=== PATIENT | female | born 1960 | race Caucasian/White ===

== ENCOUNTER → 2021-03-22 | Outpatient (CLI) | payer OTHER ==
[~2021-03-22] MED LIST: IBUP600 PO; LISI20 PO; METFORMIN HCL500 MG PO
[2021-03-22 18:38] LABS: Protein, Urine Random 17.9 mg/dL (0.0-11.9)
== END | disposition home or self-care (01) ==
LOC: PLD 14:41 → LAB SHORT 14:41 → LAB FUT 05-06 07:20
PROVIDERS: Internal Medicine
DX: N18.30 Chronic kidney disease, stage 3 unspecified (principal)
CPT/HCPCS: 82570; 84156

== ENCOUNTER 2022-01-05 12:58 | Day surgery (SDC) | payer OTHER ==
[~2022-01-05] VITALS: Ht 175.3 cm; Wt 129.8 kg
[2022-01-05] MEDS ORDERED: ASPI81CH (13:41)
[2022-01-05] MEDS ORDERED: METHI10 (13:42)
[2022-01-05] MEDS ORDERED: VITAMIN D310 MC4 (13:43)
[2022-01-05] MEDS ORDERED: ZOCOR20 MG (13:43)
[2022-01-05] MEDS ORDERED: MIRALAX17 GM (13:44)
--- NOTE | 2022-01-05 15:44 | NUR ---
01/05/22 1544 EDELMIRA CARRASCO 5MM ASCENDING COLON POLYP REMOVED BUT UNABLE TO RETRIEVE.
== END 2022-01-05 15:40 | disposition home or self-care (01) ==
LOC: ORSCSDS 12:58
PROVIDERS: Internal Medicine Gastroenterology
PROC: 0DBK8ZX Excision of Ascending Colon, Via Natural or Artificial Opening Endoscopic, Diagnostic (ICD-10-PCS; principal; 2022-01-05 14:30)
DX: Z12.11 Encounter for screening for malignant neoplasm of colon (principal); K57.30 Diverticulosis of large intestine without perforation or abscess without bleeding; Z86.010 Personal history of colon polyps; D37.4 Neoplasm of uncertain behavior of colon; E11.9 Type 2 diabetes mellitus without complications; I10 Essential (primary) hypertension; E66.01 Morbid (severe) obesity due to excess calories; Z68.41 Body mass index [BMI] 40.0-44.9, adult; Z79.84 Long term (current) use of oral hypoglycemic drugs; Z79.899 Other long term (current) drug therapy
CPT/HCPCS: 82947; J2704; J7120

== ENCOUNTER → 2022-07-04 | Outpatient (CLI) | payer OTHER ==
[~2022-07-04] MED LIST changes: +ASPI81CH; +METHI10; +MIRALAX17 GM; +VITAMIN D310 MC4; +ZOCOR20 MG
[2022-07-04 18:49] LABS: Protein, Urine Random <5.0 mg/dL (0.0-11.9); Protein/Creat Ratio, Ur Random Unable to Calculate
== END | disposition home or self-care (01) ==
LOC: LAB SHORT 09:40 → LAB 09:40
PROVIDERS: Internal Medicine Nephrology
DX: N18.31 Chronic kidney disease, stage 3a (principal)
CPT/HCPCS: 82570; 84156

== ENCOUNTER 2023-08-21 13:24 | Inpatient (IN) | payer OTHER ==
[~2023-08-21] VITALS: Ht 167.6 cm; Wt 131.0 kg
[2023-08-21] VITALS (15 sets, daily range): BP systolic 131–177; BP diastolic 56–118
[~2023-08-21 13:24] MED LIST changes: -METHI10; +METHI10 PO; -ZOCOR20 MG; +ZOCOR20 MG PO
[2023-08-21 14:11] LABS: Base Excess Venous -0.8 mmol/L; Bicarbonate Venous 23.1 mmol/L (24.0-30.0); PCO2 Venous 41.1 mmHg (38-42); pH Blood Venous 7.38 (7.34-7.37)
[2023-08-21 14:16] LABS: Hematocrit 40.6 % (33.0-51.0); Hemoglobin 13.4 g/dL (11.5-16.0); Mean Corpuscular HGB 29.7 pg (26.0-34.0); Mean Corpuscular Volume 90 fL (80-100); Platelet Count 126 K/mm3 (150-400); RDW Coefficient Variation 14.5 % (11.7-14.2); RDW Standard Deviation 47.8 fL (35.1-46.3); Red Blood Cell Count 4.51 M/mm3 (3.80-5.20)
[2023-08-21 14:24] LABS: Albumin, Blood 2.9 g/dL (3.4-5.0); Albumin/Globulin Ratio 0.6 (0.8-1.8); Bilirubin, Total 0.7 mg/dL (0.1-1.0); Bun/Creatinine Ratio 18.6 (12.0-20.0); Calcium, Blood 8.6 mg/dL (8.5-10.1); Creatinine, Blood 1.61 mg/dL (0.40-1.00); Total Protein, Blood 7.9 g/dL (6.4-8.2)
[2023-08-21 14:53] LABS: BAND PERCENT MAN 8 % (0-8); BASOPHILS PERCENT MAN 0 % (0-2); EOSINOPHILS PERCENT MAN 0 % (0-6); LYMPHOCYTES ABSOLUTE MAN 0.38 K/mm3 (0.84-5.20); LYMPHOCYTES PERCENT MAN 3 % (21-46); MONOCYTES ABSOLUTE MAN 0.77 K/mm3 (0.16-1.47); MONOCYTES PERCENT MAN 6 % (4-13); NEUTROPHILS ABSOLUTE MAN 11.73 K/mm3 (1.96-9.15); SEG NEUTROPHILS PERCENT MAN 83 % (41-73); TOTAL CELLS COUNTED 100
[2023-08-21 16:02] LABS: Source, Urine Clean Catch
[2023-08-21 16:07] LABS: Appearance, Urine Hazy (Clear); Bilirubin, Urine Neg (Neg); Blood, Urine 5+ (Neg); Color, Urine Yellow (P-Yellow); Glucose Qualitative, Urine Neg (Neg); Ketones, Urine 1+ (Neg); Leukocyte Esterase, Urine Neg (Neg); Nitrite, Urine Neg (Neg); Protein, Urine 3+ (Neg); Urobilinogen, Urine NORM (Normal)
[2023-08-21] MEDS ORDERED: Prinivil10 MG PO (16:28)
[2023-08-21 16:30] LABS: Amorphous Mod (0-Heavy); Bacteria Few /hpf; Squamous Epithelial Cells Few /hpf (Few); White Blood Cells, Urine 0-2 /hpf (0-5)
[2023-08-21 19:35] LABS: PO2 Arterial 203 mmHg (80-100); pH Blood Arterial 7.47 (7.35-7.45)
--- NOTE | 2023-08-21 19:57 | NUR ---
UPDATE ASSUMED CARE OF PATIENT AT 1900, PATIENT VERY LETHARGIC, WILL OPEN EYES TO HER NAME BUT QUCKLY FALLS BACK ASLEEP. PATIENT TACHYPNEIC WITH RR 45. TACHYCARDIC WITH HR 130s. UPON ASSESSMENT PATIENT WAS ON 3L NC BUT THIS RN WENT INTO ROOM, PATIENT BEGAN TO DESAT INTO HIGH 70s. NONREBREATHER PLACED AT 15L, PATIENT ABLE TO RECOVER TO LOW 90s. RT NOTIFIED. RESIDENT GAITAN AT BEDSIDE GIVING VERBAL ORDERS FOR ABG AND CPAP/BIPAP PER RT RECCOMENDATION. NS BOLUS INFUSING PER EMAR. RT ILEANA ABG. DECISION TO PLACE PATIENT ON BIPAP RR HAS NOT IMPROVED. RESIDENT UMAÑA CALLED AND COMING TO BEDSIDE. TEMP SIGALA CATH PLACED FOR CRITICAL I/Os PER VERBAL ORDER. RESIDENT UMAÑA ALSO PLACING TRANSFER ORDERS TO ICU. THIS RN AND RT TO BRING PATIENT TO IMAGING FOR HEAD CT AND TO TRANSFER TO ICU .
--- NOTE | 2023-08-21 20:20 | NUR ---
UPDATE THIS RN, AVIONICS ELECTRONICS TECHNICIAN AND RT AT BEDSIDE ATTEMPTING TO BRING PATIENT TO IMAGING FOR HEAD CT. PATIENT CONTINUES TO BE TACHYPNEIC ON BIPAP WITH RR 45-50. PATIENT SPO2 DROPPED TO 80s. 100% O2 APPLIED THROUGH BIPAP. THIS RN CALLED ICU AVIONICS ELECTRONICS TECHNICIAN WITH UPDATE. ICU CHARGE AT BESIDE. PATIENT TOO UNATABLE TO TRANSFER TO IMAGING AT THIS TIME. PATIENT TRANSFERRED TO ICU 09. SON AT BEDSIDE WAS UPDATED AND IN THE ICU WAITING ROOM. BEDSIDE SHIFT REPORT GIVEN TO PASSENGER BOOKING CLERK.
[2023-08-21 21:16] LABS: Source, Urine Foley catheter
[2023-08-21 21:26] LABS: Appearance, Urine Cloudy (Clear); Bilirubin, Urine Neg (Neg); Blood, Urine 5+ (Neg); Color, Urine Yellow (P-Yellow); Glucose Qualitative, Urine 1+ (Neg); Ketones, Urine 2+ (Neg); Leukocyte Esterase, Urine Neg (Neg); Nitrite, Urine Neg (Neg); Protein, Urine 3+ (Neg); Urobilinogen, Urine NORM (Normal)
[2023-08-21 21:43] LABS: Red Blood Cells, Urine 0-2 /hpf (0-2); Squamous Epithelial Cells Few /hpf (Few); White Blood Cells, Urine 0-2 /hpf (0-5)
[2023-08-21 21:44] LABS: Amorphous Mod (0-Heavy); Bacteria Few /hpf; Granular Casts 0-2 /lpf (0)
--- NOTE | 2023-08-21 23:00 | NUR ---
PT ARRIVED FROM PCU AT 2019 ACCOMPANIED BY C D AREA SUPERVISOR, RT AND ICU DENTISTRY TEACHER. PT NODS APPROPRIATELY, FOLLOWS COMMANDS, IS NOT ANSWERING QUESTIONS VERBALLY, MUMBLES AT TIMES BUT UNABLE TO MAKE OUT SPEECH WITH BIPAP ON. PER SON AT BEDSIDE, PT IS A/O X4 AT BASELINE. ST 120-150. BP ELEVATED 130-150'S. ON BIPAP 14/6 FIO2 50%. O2 SAT 100%. LUNGS COARSE THROUGHOUT, RESP 40-50. NO C/O NAUSEA, NO VOMITING. BS HYPOACTIVE, ABDOMEN OBESE. TEMP PROBE SIGALA PLACED IN PCU. CONNECTED TO BEDSIDE MONITOR AND CORE TEMP READING 105.5. CONTINUED TO RISE TO 105.7. ICE PACKS IMMEDIATELY PLACED AND DR. UMAÑA NOTIFIED. APAP SD ORDERED AND GIVEN. TEMP DECREASED TO 104.7. SON AT BEDSIDE. ADMISSION COMPLETED, PT LIVES WITH 3 SONS, 1 DAUGHTER IN LAW AND 2 GRANDCHILDREN. SON SANDRO AT BEDSIDE STATES THEY "ALL TAKE CARE OF EACHOTHER". SKIN WITH SEVERAL AREAS OF CONCERN. RED OPEN AREAS IN ALL SKIN FOLDS WITH FOUL ODOR. CLEANSED AND POWDER PLACED. LEFT FOOT RED AND EDEMATOUS. PODIATRY CONSULT PENDING. KLEBER IBANEZ AT BEDSIDE, ALL QUESTIONS ANSWERED AND UPDATES PROVIDED APPROPRIATE. POC ONGOING.
[2023-08-22] VITALS (40 sets, daily range): BP systolic 101–142; BP diastolic 41–86
--- NOTE | 2023-08-22 00:15 | NUR ---
DR. UMAÑA TO BEDSIDE CONTACTED BY THIS RN, TEMP HAS INCREASED TO 105.1 AND CONTINUES TO CLIMB. APAP NOT DUE FOR 1.5 HOURS, ICE PACKS IN PLACE. COOLING BLANKET ADDED UNDER PT AND RECTAL TEMP PROBE PLACED AND CONNECTED TO COOLING BLANKET. MD TO BEDSIDE, FLAGYL ADDED TO ANTIBIOTIC REGIMEN. RESP PANEL COLLECTED EARLIER HAS NOT YET RESULTED. SON CONTINUES TO BE AT BEDSIDE, UPDATED ON CURRENT CONDITION, ALL QUESTIONS ANSWERED. POC ONGOING.
[2023-08-22 01:26] LABS: Adenovirus Not Detected (NOT DETECT); Bordetella pertussis Not Detected (NOT DETECT); Chlamydophila pneumoniae Not Detected (NOT DETECT); Coronavirus 229E Not Detected (NOT DETECT); Coronavirus HKU1 Not Detected (NOT DETECT); Coronavirus NL63 Not Detected (NOT DETECT); Coronavirus OC43 Not Detected (NOT DETECT); Human Metapneumovirus Not Detected (NOT DETECT); Human Rhinovirus/Enterovirus Not Detected (NOT DETECT); Influenza A/2009-H1 Not Detected (NOT DETECT); Influenza A/H1 Not Detected (NOT DETECT); Influenza A/H3 Not Detected (NOT DETECT); Influenza B Not Detected (NOT DETECT); Mycoplasma pneumoniae Not Detected (NOT DETECT); Parainfluenza Virus 1 Not Detected (NOT DETECT); Parainfluenza Virus 2 Not Detected (NOT DETECT); Parainfluenza Virus 3 Not Detected (NOT DETECT); Parainfluenza Virus 4 Not Detected (NOT DETECT); Respiratory Syncytial Virus Not Detected (NOT DETECT); SARS-Cov-2 (COVID-19), BioFire Detected (NOT DETECT)
[2023-08-22 04:03] LABS: Magnesium, Blood 1.8 mg/dL (1.6-2.4)
[2023-08-22 04:05] LABS: Bun/Creatinine Ratio 18.3 (12.0-20.0); Calcium, Blood 8.1 mg/dL (8.5-10.1); Creatinine, Blood 1.69 mg/dL (0.40-1.00); Potassium, Blood 3.7 mmol/L (3.5-5.5); Thyroid Stimulating Hormone 0.647 uIU/mL (0.360-4.800)
--- NOTE | 2023-08-22 05:53 | NUR ---
SHIFT SUMMARY PT MORE ALERT, ANSWERING QUESTIONS WITH YES/NO. V/S IMPROVED. HR 80'S, BP 106/59 MAP 74, TEMP DECREASED TO 98.7 AFTER SECOND DOSE OF APAP CT AND COOLING BLANKET. SR WITH MORE FREQUENT PVC'S AND PAC'S. BIPAP 14/6 FIO2 35%, SPO2 98%, RESP RATE 20. LUNGS SLIGHTLY LESS COARSE THAN PRIOR, WEAK COUGH AT TIMES, NO SPUTUM. REMAINS NPO, POC BLOOD GLUCOSE EVERY 6 HOURS WITH LOW SLIDING SCALE COVERAGE. 2 UNITS INSULIN SQ GIVEN FOR BLOOD GLUCOSE 220. NO NAUSEA OR VOMITING. SIGALA IN PLACE DRAINING JOSE ANTONIO URINE WITH SEDIMENT. 550 ML OUT THIS SHIFT. PICTURES TAKEN OF SKIN/AREAS OF CONCERN, PLACED IN CHART. PIV X2,. BOTH WITHDRAW BLOOD AND FLUSH WELL. SON LEFT AT APPROX 0200, WILL BE BACK THIS AM. DAUGHTER IN LAW UNA CALLED THIS AM FOR UPDATE, ALL QUESTIONS ANSWERED, UPDATE PROVIDED INCLUDING COVID STATUS. NOTIFIED DR. UMAÑA OF POSITIVE BLOOD CULTURES. NO NEW ORDERS RECIEVED. POC ONGOING.
[2023-08-22 05:58] LABS: Hematocrit 34.7 % (33.0-51.0); Hemoglobin 11.4 g/dL (11.5-16.0); Mean Corpuscular HGB 29.9 pg (26.0-34.0); Mean Corpuscular HGB Conc 32.9 g/dL (31.5-36.5); Mean Corpuscular Volume 91 fL (80-100); Mean Platelet Volume 12.3 fL (9.1-12.4); Platelet Count 88 K/mm3 (150-400); RDW Coefficient Variation 14.9 % (11.7-14.2); Red Blood Cell Count 3.81 M/mm3 (3.80-5.20); White Blood Cell Count 12.05 K/mm3 (4.00-11.30)
[2023-08-22 06:20] LABS: BAND PERCENT MAN 8 % (0-8); BASOPHILS PERCENT MAN 0 % (0-2); EOSINOPHILS PERCENT MAN 0 % (0-6); LYMPHOCYTES ABSOLUTE MAN 0.12 K/mm3 (0.84-5.20); LYMPHOCYTES PERCENT MAN 1 % (21-46); MONOCYTES ABSOLUTE MAN 0.12 K/mm3 (0.16-1.47); MONOCYTES PERCENT MAN 1 % (4-13); SEG NEUTROPHILS PERCENT MAN 90 % (41-73); TOTAL CELLS COUNTED 100
--- NOTE | 2023-08-22 08:00 | NUR ---
INITIAL ASSESSMENT PATIENT ALERT AND ORIENTED X 4, SLOW TO RESPOND. SPEECH MUMBLED. PATIENT CALM, COOPERATIVE, FLAT AFFECT NOTED. PATIENT WEAK BUT ABLE TO MOVE ALL EXTREMITIES. PATIENT HAS COOLING BLANKET ON. PATIENT AFEBRILE AT THIS TIME. LLE PAINFUL TO TOUCH BUT OTHERWISE NO COMPLAINTS OF PAIN. LUNGS CLEAR THROUGHOUT. PATIENT CHANGED FROM BIPAP 14/6, 35% FIO2 TO 1 L NC AND REMAINS SATTING 90% AND GREATER. PATIENT IN SR, HR 80S TO 90S. SBP LOW 100S TO 1-TEENS. HYPOACTIVE BS NOTED. PATIENT NPO. DATE OF LAST BM UNKNOWN. TEMP PROBE SIGALA IN PLACE DRAINING YELLOW COLORED URINE WITH SEDIMENT NOTED. PANNUS/ PETER FOLDS REDDENED. L LOWER LEG AND FOOT RED AND INFLAMED. SCABS TO L 2ND TOE. NS INFUSING AT 150 MLS/ HOUR. BED LOW, CALL LIGHT IN REACH. CARE CONTINUES.
[2023-08-22 08:56] LABS: Hematocrit 35.7 % (33.0-51.0); Mean Corpuscular HGB 30.4 pg (26.0-34.0); Mean Corpuscular HGB Conc 33.6 g/dL (31.5-36.5); Mean Corpuscular Volume 90 fL (80-100); Mean Platelet Volume 12.5 fL (9.1-12.4); Platelet Count 101 K/mm3 (150-400); RDW Coefficient Variation 14.8 % (11.7-14.2); RDW Standard Deviation 49.5 fL (35.1-46.3); Red Blood Cell Count 3.95 M/mm3 (3.80-5.20); White Blood Cell Count 10.76 K/mm3 (4.00-11.30)
[2023-08-22 09:19] LABS: Percent Saturation 6.9 % (15.0-50.0)
[2023-08-22 09:20] LABS: BAND PERCENT MAN 13 % (0-8); BASOPHILS PERCENT MAN 0 % (0-2); EOSINOPHILS PERCENT MAN 0 % (0-6); LYMPHOCYTES ABSOLUTE MAN 0.43 K/mm3 (0.84-5.20); LYMPHOCYTES PERCENT MAN 4 % (21-46); METAMYELOCYTE PERCENT MAN 1 % (0-0); MONOCYTES PERCENT MAN 1 % (4-13); NEUTROPHILS ABSOLUTE MAN 10.11 K/mm3 (1.96-9.15); SEG NEUTROPHILS PERCENT MAN 81 % (41-73); TOTAL CELLS COUNTED 100
[2023-08-22 09:48] LABS: International Normalized Ratio 1.02; Prothrombin Time Results 10.7 Sec (9.7-11.5)
--- NOTE | 2023-08-22 12:30 | NUR ---
PATIENT AFEBRILE. HR IN THE 90S. SBP 1-TEENS. BLOOD SUGAR 269; COVERAGE ADMINISTERED. NO OTHER ACUTE CHANGES TO NOTE ON AT THIS TIME. CARE CONTINUES.
--- NOTE | 2023-08-22 16:30 | NUR ---
PATIENT AFEBRILE. HR IN THE 80S. SBP IN THE 1-TEENS. BLOOD SUGAR 217; COVERAGE ADMINISTERED. SPEECH THERAPY STARTED DIET ON PATIENT. NO OTHER ACUTE CHANGES TO NOTE ON AT THIS TIME. CALL LIGHT IN REACH. SON AT SIDE. CARE CONTINUES.
--- NOTE | 2023-08-22 18:32 | NUR ---
SHIFT SUMMARY PATIENT REMAINED ALERT AND ORIENTED X 4, AFEBRILE. COOLING BLANKETS REMOVED THIS AM. PATIENT SLOW TO RESPOND AND SPEECH MUMBLED. PATIENT WEAK BUT ABLE TO MOVE ALL EXTREMITIES. LLE PAINFUL WHEN TOUCHED, OTHERWISE NO COMPLAINTS OF PAIN THIS SHIFT. PATIENT TAKEN OFF BIPAP THIS AM AND REMAINED SATTING 90% AND GREATER ON 1 L NC. PATIENT REMAINED IN SR, HR RANGED FROM 70S TO LOW 100S. SBP LOW 100S TO 120S. PATIENT HAD SMEAR THIS SHIFT. SPEECH THERAPY PERFORMED SWALLOW EVAL ON PATIENT AND STARTED ON PUREE DIET; PATIENT TOLERATING WELL UP TO THIS POINT. 500 MLS OF YELLOW COLORED URINE WITH SEDIMENT NOTED FROM SIGALA. NO CHANGES TO SKIN NOTED. DR. HIGGINS IN TO ASSESS FOOT AND TOE; STATED HE PLANS TO TAKE PATIENT TO SURGERY TOMORROW FOR INFECTED TOE. MICONAZORB ORDERED AND STARTED FOR REDDENED, FOUL-SMELLING PANNUS AND PETER SKIN FOLDS. NS REMAINS INFUSING AT 150 MLS/ HOUR. ELISABETH DC'D THIS SHIFT. OT AND PT WORKED WITH PATIENT THIS SHIFT. ECHO PERFORMED THIS SHIFT. PATIENT UP TO CHAIR WITH LIFT THIS SHIFT. PATIENT RECEIVED COMPLETE BED BATH. BLOOD SUGARS 269 AND 217 THIS SHIFT. SON HERE ALL SHIFT SITTING IN ROOM WITH PATIENT. PATIENT HAS NO COMPLAINTS AT THIS TIME. CALL LIGHT IN REACH. REPORT WILL BE GIVEN TO ASSUMING SPIN TANK TENDER NURSE SHORTLY.
--- NOTE | 2023-08-22 20:35 | NUR ---
ASSUMED CARE PT IS A&O X2; WHEN ASKED WHERE SHE WAS PT STATED "[facility]" AND WHEN REMINDING PT SHE WAS IN HOSPITAL, PT STATED "OH YEA, SPEEDY, I KNEW THAT.". PT IS COOPERATIVE W/ CARE AND PLEASANT. TOLERATING BIPAP WELL. SPO2 >92% ON BIPAP; MAP >65; NSR/ST 90-100'S. PT DENIES CP OR NAUSEA. PT DID NOT TOLERATE SHORT BREAK FROM BIPAP FOR MEDS (HF NC 15L) AND DESATTED DOWN INTO THE 80'S; QUICKLY RECOVERED AFTER BIPAP WAS PUT BACK ON.
--- NOTE | 2023-08-22 20:47 | NUR ---
ASSUMED CARE PT IS A&O X4; SLOW/SLURRED SPEECH; COMMUNICATES APPROPRIATELY. SPO2 >92% ON RA; MAP >65; NSR. PT WAS MOVED FROM CHAIR TO BED AT START OF SHIFT. SON AT BEDSIDE. PERRLA; EQUAL PACK PRESS OPERATOR STRENGTH BILATERALLY. LEFT LEG SHOWS REDNESS SLIGHTLY OUTSIDE OF DEMARCATED LINE (2-3CM)(REDRAWN W/ SHARPIE AROUND NEW REDNESS). PT DENIES CP, SOB, OR NAUSEA. RESTING QUIETLY WATCHING TV AT THIS TIME.
--- NOTE | 2023-08-22 23:48 | NUR ---
UPDATE PT IS RESTING QUIETLY. NO LONGER COMPLAINING OF PAIN, BUT APPEARS TO BE FAVORING HER LEFT ARM. IS ABLE TO MOVE ARM (EXCLUDING LIFTING LEFT ARM PAST SHOULDERS). DIRECTOR OF EMERGENCY NURSING STRENGTH EQUAL AND PERRLA.
[2023-08-23] VITALS (11 sets, daily range): BP systolic 80–152; BP diastolic 58–81
[2023-08-23 03:33] LABS: Hematocrit 34.7 % (33.0-51.0); Hemoglobin 11.2 g/dL (11.5-16.0); Mean Corpuscular HGB 29.5 pg (26.0-34.0); Mean Corpuscular HGB Conc 32.3 g/dL (31.5-36.5); Mean Corpuscular Volume 91 fL (80-100); Mean Platelet Volume 12.3 fL (9.1-12.4); Platelet Count 87 K/mm3 (150-400); RDW Coefficient Variation 15.1 % (11.7-14.2); RDW Standard Deviation 50.7 fL (35.1-46.3); White Blood Cell Count 10.82 K/mm3 (4.00-11.30)
[2023-08-23 04:07] LABS: Albumin, Blood 2.1 g/dL (3.4-5.0); Albumin/Globulin Ratio 0.5 (0.8-1.8); Bilirubin, Total 0.3 mg/dL (0.1-1.0); Bun/Creatinine Ratio 25.3 (12.0-20.0); Calcium, Blood 7.6 mg/dL (8.5-10.1); Creatinine, Blood 1.74 mg/dL (0.40-1.00); Globulin, Blood 3.9 g/dL (2.2-4.0); Potassium, Blood 3.7 mmol/L (3.5-5.5)
[2023-08-23 04:12] LABS: BASOPHILS PERCENT MAN 0 % (0-2); EOSINOPHILS PERCENT MAN 0 % (0-6); LYMPHOCYTES % ATYPICAL MANUAL 3 % (0-0); LYMPHOCYTES ABSOLUTE MAN 0.86 K/mm3 (0.84-5.20); LYMPHOCYTES PERCENT MAN 5 % (21-46); MONOCYTES ABSOLUTE MAN 0.32 K/mm3 (0.16-1.47); MONOCYTES PERCENT MAN 3 % (4-13); MYELOCYTE PERCENT MAN 1 % (0-0); NEUTROPHILS ABSOLUTE MAN 9.52 K/mm3 (1.96-9.15); SEG NEUTROPHILS PERCENT MAN 88 % (41-73); TOTAL CELLS COUNTED 100
--- NOTE | 2023-08-23 05:25 | NUR ---
SHIFT SUMMARY PT HAS RESTED QUIETLY T/O NIGHT. PT STATED THAT SHE GOT A LITTLE SLEEP, BUT IS DOING "OKAY". PT IS CURRENTLY RESTING QUIETLY AND HAS NO NEW COMPLAINTS. WHEN ASKED IF PT NEEDS ANYTHING THIS AM PT SAYS NO AND SMILES. SIGALA CATHETER PATENT AND DRAINING TO GRAVITY. VSS
--- NOTE | 2023-08-23 07:18 | NUR ---
TRANSFER PT TRANSFERR TO PCU 10 AT 0700 W/ BELONGINGS AND MEDS. REPORT GIVEN TO UCHE POPE
--- NOTE | 2023-08-23 07:48 | NUR ---
Pt transferred into PCU 10 at approx 0710. CEiling lift used to transfer from ICU bed to bed in the room. Pt is alert, conversant, and appears to be calm and without any distress. She is wearing a mask. Report received from BISI Anton.
--- NOTE | 2023-08-23 08:09 | NUR ---
Pt speaks in a childlike fashion, states that she is at [facility], and knows the month and year, and reason for her hospitalization. She is lying in bed, appears to be in no distress. Denies pain, dyspnea.
--- NOTE | 2023-08-23 12:48 | NUR ---
Abdominal ultrasound completed in the pt's room. PT's son Juan José is at bedside, sleeping in the recliner chair.
--- NOTE | 2023-08-23 13:11 | NUR ---
PT A&OX4, ABLE TO ANSWER QUESTIONS APPROPRIATELY, SPEECH IS SLOW AND MUMBLED. CALM AND COOPERATIVE WITH CARE. PT IS MISSING A LOT OF HER TEETH, JUST A FEW IN THE FRONT ON THE BOTTOM. PT ON RA, O2 SATURATION ABOVE 90%, PT DENIES SOB. HR SR 60'S-70'S, PT ON TELE, PT DENIES CHEST PAIN/PRESSURE, SBP 130'S-150'S. PT HAS SIGALA IN PLACE, PATENT & YELLOW URINE DRAINING WITH GRAVITY. LLE RED AND SWOLLEN, L 2ND TOE HAS DIABETUC ULCER AND AMPUTATION IS OF TOE IS SCHEDULED FOR TODAY. PT HAS IV L AC FLUSHED AND SALINE LOCKED, & IV R FOREARM FLUSHED AND SALINE LOCKED. PT IS NPO DUE TO SCHEDULED SURGERY. PT DENIES PAIN OF ANY KIND. PT RESTING IN BED WITH VISITOR IN HER ROOM.
--- NOTE | 2023-08-23 13:59 | NUR ---
PT TAKEN FOR CT SCANS.
--- NOTE | 2023-08-23 14:23 | NUR ---
PT RETURNED TO PCU [address] SCANS
--- NOTE | 2023-08-23 17:01 | NUR ---
Pt back to room just before 1630. Awake, alert and at mentation level as before the surgery. Post op dressing noted intact, clean and dry. Elevated on 2 pillows. Asked how she feels, pt replies, "relieved". Son Juan José at bedside at this time. Vital signs are stable. She is sitting up, eating and drinking. IV NS infusing at 75 cc/hour via right forearm IV. Vital signs set to run on sequence for post op monitoring.
--- NOTE | 2023-08-23 18:17 | NUR ---
PT TRANSFERRED TO 352 WITH ALL OF HER BELONGINGS, PT STABLE AT TIME OF TRANSFER. REPORT GIVEN TO ROOM 352 NURSE.
--- NOTE | 2023-08-23 18:29 | NUR ---
PATIENT TRANSFERRED FROM PCU 10 TO ROOM 362. PATIENT ORIENTED TO ROOM AND USE OF CALL LIGHT. SON AT BEDSIDE. DRESSING TO L FOOT REMAINS C/D/I. PATIENT WILL NEED POST OP SHOUE FOR AMBULATION. ACHS BLOOD SUGARS. ASPIRATION PRECAUTIONS IN PLACE. SR ON TELE THROUGHOUT THE DAY BETWEEN 60-80 BPM PER REPORT. REPORT RECEIVED FROM BISI SALAZAR. PATIENT DENIES ANY NEEDS CONCERNS AT THIS TIME. CALL LIGHT WITHIN REACH AND FALL PRECAUTIONS IN PLACE.
[2023-08-23 21:50] LABS: Vancomycin, Trough 20.2 ug/mL (5.0-10.0)
[2023-08-24 02:49] VITALS: BP 151/81
[2023-08-24 05:29] LABS: BASOPHILS ABSOLUTE AUTO 0.03 K/mm3 (0.00-0.23); BASOPHILS PERCENT AUTO 0 % (0-2); EOSINOPHILS PERCENT AUTO 0 % (0-6); Hematocrit 34.2 % (33.0-51.0); Hemoglobin 11.4 g/dL (11.5-16.0); IMMATURE GRAN ABSOLUTE AUTO 0.12 K/mm3 (0.00-0.10); IMMATURE GRAN PERCENT AUTO 1 % (0-1); LYMPHOCYTES ABSOLUTE AUTO 1.82 K/mm3 (0.84-5.20); LYMPHOCYTES PERCENT AUTO 13 % (21-46); MONOCYTES ABSOLUTE AUTO 0.88 K/mm3 (0.16-1.47); MONOCYTES PERCENT AUTO 6 % (4-13); Mean Corpuscular HGB 29.8 pg (26.0-34.0); Mean Corpuscular HGB Conc 33.3 g/dL (31.5-36.5); Mean Corpuscular Volume 90 fL (80-100); NEUTROPHILS ABSOLUTE AUTO 11.62 K/mm3 (1.96-9.15); NEUTROPHILS PERCENT AUTO 80 % (41-73); Platelet Count 112 K/mm3 (150-400); RDW Coefficient Variation 15.3 % (11.7-14.2); RDW Standard Deviation 50.4 fL (35.1-46.3); Red Blood Cell Count 3.82 M/mm3 (3.80-5.20); White Blood Cell Count 14.47 K/mm3 (4.00-11.30)
[2023-08-24 05:47] LABS: Mean Platelet Volume 13.3 fL (9.1-12.4)
[2023-08-24 06:04] LABS: Albumin, Blood 2.2 g/dL (3.4-5.0); Albumin/Globulin Ratio 0.6 (0.8-1.8); Bilirubin, Total 0.6 mg/dL (0.1-1.0); Bun/Creatinine Ratio 32.7 (12.0-20.0); Calcium, Blood 7.8 mg/dL (8.5-10.1); Creatinine, Blood 1.65 mg/dL (0.40-1.00); Globulin, Blood 3.7 g/dL (2.2-4.0); Potassium, Blood 4.1 mmol/L (3.5-5.5); Total Protein, Blood 5.9 g/dL (6.4-8.2)
--- NOTE | 2023-08-24 06:36 | NUR ---
Shift Summary Pt states no pain on her RLE, although she does have reduced sensation due to neuropathy per pt. Good capilary refill on R toes. Guaze and TAWANDA bandage dressing are C/D/I. 1 incontinent BM this shift. Ann in place draining to gravity and patent. NS running at 75. Pt on nectar thick liquids for aspiration precautions, meds given crushed in apple sauce. Q2 turns. Pt slept for a small portion of the night.
[2023-08-24 07:17] VITALS: BP 153/77
[2023-08-24 15:38] VITALS: BP 144/75
--- NOTE | 2023-08-24 18:26 | NUR ---
SHIFT SUMMARY: PT A&O X2-3. PT PLEASANT AND COOPERATIVE WITH CARE. PT REMAINS TO HAVE DIFFICULT TIME PLACING WORDS/SENTENCES TOGETHER. FOLDS CLEANED, DRIED, AND APPLIED POWDER. SIGALA NOT NEEDED AT THIS POINT DUE TO NO ORDER FOR STRICT I&O. WILL BE OUT PRIOR TO END OF SHIFT. DRESSING ON L. FOOT C/D/I. NO C/O PAIN THIS SHIFT. NS RUNNING @50/HR. ASPIRATION PRECAUTION IN PLACE. CALL LIGHT IN REACH. BED IN LOWEST POSITION. WILL CONTINUE TO MONITOR.
[2023-08-24 20:52] VITALS: BP 181/100
[2023-08-24 23:14] VITALS: BP 172/94
[2023-08-25 02:00] VITALS: BP 160/88
[2023-08-25 04:10] VITALS: BP 157/78
[2023-08-25 05:40] LABS: Hematocrit 36.4 % (33.0-51.0); Hemoglobin 11.7 g/dL (11.5-16.0); Mean Corpuscular HGB 29.3 pg (26.0-34.0); Mean Corpuscular HGB Conc 32.1 g/dL (31.5-36.5); Mean Corpuscular Volume 91 fL (80-100); Platelet Count 136 K/mm3 (150-400); RDW Coefficient Variation 15.6 % (11.7-14.2); RDW Standard Deviation 51.8 fL (35.1-46.3); White Blood Cell Count 15.39 K/mm3 (4.00-11.30)
[2023-08-25 06:11] LABS: BASOPHILS PERCENT MAN 0 % (0-2); EOSINOPHILS PERCENT MAN 0 % (0-6); LYMPHOCYTES % ATYPICAL MANUAL 3 % (0-0); LYMPHOCYTES ABSOLUTE MAN 2.15 K/mm3 (0.84-5.20); LYMPHOCYTES PERCENT MAN 11 % (21-46); MONOCYTES ABSOLUTE MAN 0.92 K/mm3 (0.16-1.47); MONOCYTES PERCENT MAN 6 % (4-13); NEUTROPHILS ABSOLUTE MAN 12.31 K/mm3 (1.96-9.15); SEG NEUTROPHILS PERCENT MAN 80 % (41-73); TOTAL CELLS COUNTED 100
[2023-08-25 06:22] LABS: Albumin, Blood 2.2 g/dL (3.4-5.0); Albumin/Globulin Ratio 0.5 (0.8-1.8); Bilirubin, Total 0.5 mg/dL (0.1-1.0); Bun/Creatinine Ratio 36.1 (12.0-20.0); Calcium, Blood 8.1 mg/dL (8.5-10.1); Creatinine, Blood 1.58 mg/dL (0.40-1.00); Globulin, Blood 4.3 g/dL (2.2-4.0); Potassium, Blood 4.2 mmol/L (3.5-5.5); Total Protein, Blood 6.5 g/dL (6.4-8.2)
--- NOTE | 2023-08-25 06:49 | NUR ---
Shift Summary Pt had Ann taken out yesterday, purewick in place tonight. Low urine output, urine is a dark yellow. Pt was very hypertensive early in the night 181/100, called hospitalist who ordered a one time dose of 10mg Lisinopril which is pt's home HTN medication. Pt still hypertensive 157/78 this AM. No c/o pain or nausea. Pt still having difficulty forming words but she understands most of what staff is saying and is able to convey her ideas with effort. Pt was awake for most of the night.
[2023-08-25 07:38] VITALS: BP 156/75
--- NOTE | 2023-08-25 10:41 | NUR ---
BLADDER SCAN SHOWS VOL>700ML. 200ML ON NOC SHIFT. PER DR. HOWELL, PLACE INDWELLING SIGALA.
[2023-08-25 12:31] LABS: Source, Urine Foley catheter
[2023-08-25 12:45] LABS: Appearance, Urine Clear (Clear); Bilirubin, Urine Neg (Neg); Blood, Urine 5+ (Neg); Color, Urine Yellow (P-Yellow); Glucose Qualitative, Urine 3+ (Neg); Ketones, Urine Neg (Neg); Leukocyte Esterase, Urine Neg (Neg); Nitrite, Urine Neg (Neg); Protein, Urine 1+ (Neg); Specific Gravity, Urine 1.015 (1.003-1.022); Urobilinogen, Urine NORM (Normal)
[2023-08-25 12:57] LABS: Bacteria Rare /hpf; Red Blood Cells, Urine 25-50 /hpf (0-2); Squamous Epithelial Cells Few /hpf (Few); White Blood Cells, Urine 0-2 /hpf (0-5)
[2023-08-25 13:12] LABS: HEPARIN INDUCED PLATELET AB 0.111 OD (0.000-0.400)
[2023-08-25 16:30] VITALS: BP 166/96
--- NOTE | 2023-08-25 18:30 | NUR ---
SHIFT SUMMARY PT IS ALERT AND ORIENTED. DIFFICULT TO UNDERSTAND AND SLOW TO ANSWER. BEDREST. REDNESS IS EXTENDING PAST THE MARKED AREA ON LLE. SIGALA IN PLACE DUE TO ACUTE RETENTION. TREATED CBG PER EMAR. PT IS CALM AND COOPERATIVE. NO ACUTE CHANGES THIS SHIFT. FAMILY IS AT BEDSIDE. PT IS ABLE TO MAKE NEEDS KNOWN. BED IS IN THE LOWEST POSITION WITH CALL LIGHT IN REACH
[2023-08-25 19:17] VITALS: BP 163/90
[2023-08-25 22:37] LABS: Vancomycin, Trough 23.3 ug/mL (5.0-10.0)
[2023-08-26 04:21] VITALS: BP 149/81
--- NOTE | 2023-08-26 04:21 | NUR ---
SHIFT SUMMARY; NO ACUTE CHANGES OVERNIGHT. THE PT IS AXO X4, VERY SLOW TO RESPOND AND SPEECH IS VERY MUMBLED. THE PT IS A LIFT PT, PT IS ABLE TO BARE WT TOLERATED W/ A WALKING BOOT ON THE L FOOT. HOWEVER, PT DID NOT WORK W/ PHYSICAL THERAPY ON 08/25/23. PT HAS SOME CHRONIC BACK PAIN BUT DENIED THE NEED FOR ANY PRN PAIN MEDICATION LAST NIGHT. THE PT HAS A SIGALA IN PLACE, IT IS PATENT AND DRAINING TO GRAVITY. THE PT HAS BEEN SLEEPING IN BED FOR THE DURATION OF THE SHIFT. THE PTS O2 SATS REMAIN >92% ON RA. THE PT ALSO DENIES ANY SOB, CHEST PAIN/PRESSURE, N/V OR PAIN T/O THE NIGHT. CURRENTLY THE PT IS SLEEPING IN BED WITH THE BED IN THE LOWEST POSITION AND THE CALL LIGHT AT BEDSIDE. FIRE EDUCATION PROVIDED AND FIRE SAFETY ROUNDS COMPLETED.
[2023-08-26 05:48] LABS: Hematocrit 35.5 % (33.0-51.0); Hemoglobin 11.5 g/dL (11.5-16.0); Mean Corpuscular HGB 29.4 pg (26.0-34.0); Mean Corpuscular HGB Conc 32.4 g/dL (31.5-36.5); Mean Corpuscular Volume 91 fL (80-100); Mean Platelet Volume 12.9 fL (9.1-12.4); Platelet Count 180 K/mm3 (150-400); RDW Coefficient Variation 15.6 % (11.7-14.2); Red Blood Cell Count 3.91 M/mm3 (3.80-5.20); White Blood Cell Count 16.25 K/mm3 (4.00-11.30)
[2023-08-26 06:14] LABS: Albumin, Blood 2.3 g/dL (3.4-5.0); Albumin/Globulin Ratio 0.6 (0.8-1.8); Bilirubin, Total 0.6 mg/dL (0.1-1.0); Bun/Creatinine Ratio 46.2 (12.0-20.0); Calcium, Blood 8.3 mg/dL (8.5-10.1); Creatinine, Blood 1.3 mg/dL (0.40-1.00); Globulin, Blood 3.7 g/dL (2.2-4.0); Potassium, Blood 4.2 mmol/L (3.5-5.5)
[2023-08-26 06:17] LABS: BAND PERCENT MAN 4 % (0-8); BASOPHILS PERCENT MAN 0 % (0-2); EOSINOPHILS PERCENT MAN 0 % (0-6); LYMPHOCYTES ABSOLUTE MAN 2.11 K/mm3 (0.84-5.20); LYMPHOCYTES PERCENT MAN 13 % (21-46); MONOCYTES ABSOLUTE MAN 1.13 K/mm3 (0.16-1.47); MONOCYTES PERCENT MAN 7 % (4-13); MYELOCYTE ABSOLUTE MAN 0.32 K/mm3 (0.00-0.00); MYELOCYTE PERCENT MAN 2 % (0-0); NEUTROPHILS ABSOLUTE MAN 12.51 K/mm3 (1.96-9.15); PLASMA CELL ABSOLUTE MAN 0.16 K/mm3 (0.00-0.00); PLASMA CELLS PERCENT MAN 1 % (0-0); SEG NEUTROPHILS PERCENT MAN 73 % (41-73); TOTAL CELLS COUNTED 100
[2023-08-26 07:19] VITALS: BP 152/77
[2023-08-26 15:09] VITALS: BP 134/87
--- NOTE | 2023-08-26 19:34 | NUR ---
SHIFT SUMMARY NO ACUTE CHANGES THIS SHIFT, PT SAT AT THE SIDE OF BED FOR A FEW HOURS TODAY. DENIES PAIN AND SOB. PT WAS TEARFUL TODAY BUT DID NOT WANT TO TALK ABOUT WHAT WAS BOTHERING HER. SHE SEEMED TO BRIGHTEN UP WHEN HER SON ARRIVED. R/A. ABLE TO MAKE NEEDS KNOWN. BED IS IN THE LOWEST POSTION WITH CALL LIGHT IN REACH
[2023-08-26 20:10] VITALS: BP 151/75
[2023-08-27 04:52] LABS: BASOPHILS ABSOLUTE AUTO 0.02 K/mm3 (0.00-0.23); BASOPHILS PERCENT AUTO 0 % (0-2); EOSINOPHILS ABSOLUTE AUTO 0.01 K/mm3 (0.00-0.68); EOSINOPHILS PERCENT AUTO 0 % (0-6); Hematocrit 35.5 % (33.0-51.0); Hemoglobin 11.3 g/dL (11.5-16.0); IMMATURE GRAN ABSOLUTE AUTO 0.29 K/mm3 (0.00-0.10); IMMATURE GRAN PERCENT AUTO 2 % (0-1); LYMPHOCYTES ABSOLUTE AUTO 3.28 K/mm3 (0.84-5.20); LYMPHOCYTES PERCENT AUTO 24 % (21-46); MONOCYTES ABSOLUTE AUTO 0.94 K/mm3 (0.16-1.47); MONOCYTES PERCENT AUTO 7 % (4-13); Mean Corpuscular HGB 29.2 pg (26.0-34.0); Mean Corpuscular HGB Conc 31.8 g/dL (31.5-36.5); Mean Corpuscular Volume 92 fL (80-100); Mean Platelet Volume 12.5 fL (9.1-12.4); NEUTROPHILS ABSOLUTE AUTO 9.07 K/mm3 (1.96-9.15); NEUTROPHILS PERCENT AUTO 67 % (41-73); Platelet Count 217 K/mm3 (150-400); RDW Coefficient Variation 15.6 % (11.7-14.2); RDW Standard Deviation 52.9 fL (35.1-46.3); Red Blood Cell Count 3.87 M/mm3 (3.80-5.20); White Blood Cell Count 13.61 K/mm3 (4.00-11.30)
[2023-08-27 06:21] LABS: Alanine Aminotransfer (ALT/SGP 99 U/L (12-78); Albumin, Blood 2.4 g/dL (3.4-5.0); Albumin/Globulin Ratio 0.7 (0.8-1.8); Alk Phos 56 U/L (50-136); Anion Gap 4 mmol/L (6-16); Aspartate Aminotrans (AST/SGOT 93 U/L (12-37); Bilirubin, Total 0.9 mg/dL (0.1-1.0); Blood Urea Nitrogen 55 mg/dL (8-24); Bun/Creatinine Ratio 42.6 (12.0-20.0); CO2, Blood 26 mmol/L (21-32); Calcium, Blood 8.3 mg/dL (8.5-10.1); Chloride, Blood 116 mmol/L (98-108); Creatinine, Blood 1.29 mg/dL (0.40-1.00); Globulin, Blood 3.4 g/dL (2.2-4.0); Glomerular Filtration Rate 47 (60-); Glucose, Blood 198 mg/dL (70-99); Potassium, Blood 4.4 mmol/L (3.5-5.5); Sodium, Blood 146 mmol/L (136-145); Total Protein, Blood 5.8 g/dL (6.4-8.2)
[2023-08-27 06:23] LABS: Vancomycin, Trough 21.9 ug/mL (5.0-10.0)
[2023-08-27 07:41] VITALS: BP 145/76
[2023-08-27 20:48] VITALS: BP 134/79
[2023-08-27 23:16] LABS: Vancomycin, Random 14.6 ug/mL
[2023-08-28 05:28] VITALS: BP 120/69
[2023-08-28 06:20] LABS: BASOPHILS ABSOLUTE AUTO 0.02 K/mm3 (0.00-0.23); BASOPHILS PERCENT AUTO 0 % (0-2); EOSINOPHILS ABSOLUTE AUTO 0.02 K/mm3 (0.00-0.68); EOSINOPHILS PERCENT AUTO 0 % (0-6); Hematocrit 35.4 % (33.0-51.0); Hemoglobin 11.2 g/dL (11.5-16.0); IMMATURE GRAN ABSOLUTE AUTO 0.28 K/mm3 (0.00-0.10); IMMATURE GRAN PERCENT AUTO 3 % (0-1); LYMPHOCYTES ABSOLUTE AUTO 2.93 K/mm3 (0.84-5.20); LYMPHOCYTES PERCENT AUTO 29 % (21-46); MONOCYTES ABSOLUTE AUTO 0.87 K/mm3 (0.16-1.47); MONOCYTES PERCENT AUTO 9 % (4-13); Mean Corpuscular HGB 28.9 pg (26.0-34.0); Mean Corpuscular HGB Conc 31.6 g/dL (31.5-36.5); Mean Corpuscular Volume 92 fL (80-100); Mean Platelet Volume 12.3 fL (9.1-12.4); NEUTROPHILS ABSOLUTE AUTO 5.97 K/mm3 (1.96-9.15); NEUTROPHILS PERCENT AUTO 59 % (41-73); Platelet Count 229 K/mm3 (150-400); RDW Coefficient Variation 15.5 % (11.7-14.2); RDW Standard Deviation 51.3 fL (35.1-46.3); Red Blood Cell Count 3.87 M/mm3 (3.80-5.20); White Blood Cell Count 10.09 K/mm3 (4.00-11.30)
--- NOTE | 2023-08-28 06:20 | NUR ---
SHIFT SUMMARY, PT SITTING UP IN BED DURING REPORT, SON AT BEDSIDE- PT TOOK SCHEDULED MEDICATIONS WHOLE IN THICKENED WATER, PT REFUSED TO TAKE CRUSHED MEDICATIONS- PT REQUESTED TYLENOL AT HS MEDS FOR HEADACHE- PT DENIED HEADACHE WHEN REASSESSED, PT LEFT LEG REDNESS DECREASED COMPARED TO THE OUTLINED LEG- FLUIDS AND ANTIBIOTICES INFUSED T/O NIGHT WITHOUT PROBLEMS, PT REPOSITIONED SELF AT TIMES T/O NIGHT- CATH CARE DONE - PT TOLERATED WELL, BED LOW POSITION, CALL LIGHT WITHIN REACH
[2023-08-28 06:43] LABS: Albumin, Blood 2.5 g/dL (3.4-5.0); Albumin/Globulin Ratio 0.7 (0.8-1.8); Bilirubin, Total 0.7 mg/dL (0.1-1.0); Bun/Creatinine Ratio 36.7 (12.0-20.0); Calcium, Blood 8.1 mg/dL (8.5-10.1); Creatinine, Blood 1.28 mg/dL (0.40-1.00); Globulin, Blood 3.4 g/dL (2.2-4.0); Potassium, Blood 4.1 mmol/L (3.5-5.5); Total Protein, Blood 5.9 g/dL (6.4-8.2)
[2023-08-28 08:14] VITALS: BP 150/77
[2023-08-28 12:03] LABS: Albumin, Blood 2.5 g/dL (3.4-5.0); Albumin/Globulin Ratio 0.8 (0.8-1.8); Bilirubin, Total 0.7 mg/dL (0.1-1.0); Bun/Creatinine Ratio 36.6 (12.0-20.0); Creatinine, Blood 1.23 mg/dL (0.40-1.00); Globulin, Blood 3.3 g/dL (2.2-4.0); Potassium, Blood 4.1 mmol/L (3.5-5.5); Total Protein, Blood 5.8 g/dL (6.4-8.2)
[2023-08-28 17:37] VITALS: BP 149/76
--- NOTE | 2023-08-28 17:57 | NUR ---
SHIFT SUMMARY PT WORKED WITH PHYSICAL AND OCCUPATIONAL THERAPY TODAY. UP TO CHAIR WITH LIFT FOR DINNER TODAY. PT SEEMS TO PERK UP WHEN SITTING UPRIGHT. POOR APPETITE TODAY. DRINKING HER NECTER THICK JUICES WELL, HOWEVER. NO OTHER ACUTE CHANGES IN ASSESSMETN AT THIS TIME. VS REVIEWED. PT UP VISITED BY HER SON CURRENTLY. CALL LIGHT IN REACH.
[2023-08-28 19:42] VITALS: BP 138/68
[2023-08-28 22:34] LABS: Vancomycin, Random 14.9 ug/mL
--- NOTE | 2023-08-29 04:59 | NUR ---
SHIFT SUMMARY PT SITTING UP IN CHAIR DURING BEDSIDE REPORT FROM ANGELLA MATHEWS, KLEBER IBANEZ IN ROOM- PT RETURNED TO BED VIA JAQUELINE LIFT, PT TOLERATED WELL- IV INFUSING WITHOUT PROBLEMS, SIGALA DRAINING YELLOW URINE- PT TOOK HS MEDS WITHOUT C/O NAUSEA, PT TOOK WHOLE IN NECTAR THICK WATER, SIGALA CARE DONE, PT REPOSITIONED T/O NIGHT, VANCO TROUGH DONE, IV VANCO GIVEN PER ORDER, BED LOW POSITION, CALL LIGHT WITHIN REACH, PT ON ENHANCED PRECAUTIONS
[2023-08-29 05:01] VITALS: BP 142/59
[2023-08-29 06:19] LABS: BASOPHILS ABSOLUTE AUTO 0.01 K/mm3 (0.00-0.23); BASOPHILS PERCENT AUTO 0 % (0-2); EOSINOPHILS ABSOLUTE AUTO 0.01 K/mm3 (0.00-0.68); EOSINOPHILS PERCENT AUTO 0 % (0-6); Hematocrit 33.4 % (33.0-51.0); Hemoglobin 10.7 g/dL (11.5-16.0); IMMATURE GRAN ABSOLUTE AUTO 0.27 K/mm3 (0.00-0.10); IMMATURE GRAN PERCENT AUTO 3 % (0-1); LYMPHOCYTES ABSOLUTE AUTO 2.85 K/mm3 (0.84-5.20); LYMPHOCYTES PERCENT AUTO 33 % (21-46); MONOCYTES ABSOLUTE AUTO 0.68 K/mm3 (0.16-1.47); MONOCYTES PERCENT AUTO 8 % (4-13); Mean Corpuscular HGB 29.6 pg (26.0-34.0); Mean Corpuscular Volume 92 fL (80-100); NEUTROPHILS ABSOLUTE AUTO 4.86 K/mm3 (1.96-9.15); NEUTROPHILS PERCENT AUTO 56 % (41-73); Platelet Count 226 K/mm3 (150-400); RDW Coefficient Variation 15.2 % (11.7-14.2); RDW Standard Deviation 51.2 fL (35.1-46.3); Red Blood Cell Count 3.62 M/mm3 (3.80-5.20); White Blood Cell Count 8.68 K/mm3 (4.00-11.30)
[2023-08-29 07:26] VITALS: BP 152/61
[2023-08-29 11:35] LABS: Albumin, Blood 2.4 g/dL (3.4-5.0); Albumin/Globulin Ratio 0.7 (0.8-1.8); Bilirubin, Total 0.7 mg/dL (0.1-1.0); Bun/Creatinine Ratio 30.1 (12.0-20.0); Calcium, Blood 7.8 mg/dL (8.5-10.1); Creatinine, Blood 1.23 mg/dL (0.40-1.00); Globulin, Blood 3.3 g/dL (2.2-4.0); Potassium, Blood 4.7 mmol/L (3.5-5.5); Total Protein, Blood 5.7 g/dL (6.4-8.2)
--- NOTE | 2023-08-29 18:02 | NUR ---
SHIFT SUMMARY DRESSING CHANGED TO L 2ND TOE. WOUND CARE COMPLETED ON ABD TEAR IN SKIN FOLD. PT DENIED PAIN T/O SHIFT. WORKED WITH PT/OT/ST TODAY. UP TO CHAIR FOR LUNCH. BEDBATH COMPLETED TODAY WITH CATHETER CARE. SIGALA PATENT & DRAINING. SON AT BEDSIDE AT THIS TIME. TELE & IV FLUIDS DCED TODAY PER MD ORDERS. NO OTHER ACUTE CHANGES IN ASSESSMENT AT THIS TIME. VS REVIEWED. CALL LIGHT IN REACH. AWAITING PLACEMENT TO SNF FOR FURTHER REHAB.
[2023-08-29 20:43] VITALS: BP 153/79
[2023-08-30 02:09] VITALS: BP 131/79
[2023-08-30 05:37] LABS: BASOPHILS ABSOLUTE AUTO 0.02 K/mm3 (0.00-0.23); BASOPHILS PERCENT AUTO 0 % (0-2); EOSINOPHILS PERCENT AUTO 0 % (0-6); Hemoglobin 10.8 g/dL (11.5-16.0); IMMATURE GRAN ABSOLUTE AUTO 0.19 K/mm3 (0.00-0.10); IMMATURE GRAN PERCENT AUTO 3 % (0-1); LYMPHOCYTES ABSOLUTE AUTO 2.56 K/mm3 (0.84-5.20); LYMPHOCYTES PERCENT AUTO 35 % (21-46); MONOCYTES PERCENT AUTO 8 % (4-13); Mean Corpuscular HGB 29.8 pg (26.0-34.0); Mean Corpuscular HGB Conc 32.7 g/dL (31.5-36.5); Mean Corpuscular Volume 91 fL (80-100); Mean Platelet Volume 11.9 fL (9.1-12.4); NEUTROPHILS ABSOLUTE AUTO 3.89 K/mm3 (1.96-9.15); NEUTROPHILS PERCENT AUTO 54 % (41-73); Platelet Count 216 K/mm3 (150-400); RDW Coefficient Variation 15.1 % (11.7-14.2); RDW Standard Deviation 49.7 fL (35.1-46.3); Red Blood Cell Count 3.63 M/mm3 (3.80-5.20); White Blood Cell Count 7.26 K/mm3 (4.00-11.30)
--- NOTE | 2023-08-30 06:04 | NUR ---
SHIFT SUMMARY PT SITTING UP IN BED DURING BEDSIDE REPORT - KLEBER IBANEZ AT BEDSIDE- SIGALA CATH IN PLACE DRAINING CLEAR YELLOW URINE- PT TURNED T/O NIGHT, PT ABLE TO ASSIST WITH REPOSITIONING- PT SLEPT T/O NIGHT - BED LOW POSITION, CALL LIGHT WITHIN REACH
[2023-08-30 07:28] VITALS: BP 143/59
[2023-08-30 11:58] LABS: Albumin, Blood 2.7 g/dL (3.4-5.0); Albumin/Globulin Ratio 0.8 (0.8-1.8); Bilirubin, Total 0.8 mg/dL (0.1-1.0); Bun/Creatinine Ratio 24.4 (12.0-20.0); Calcium, Blood 8.3 mg/dL (8.5-10.1); Creatinine, Blood 1.23 mg/dL (0.40-1.00); Globulin, Blood 3.4 g/dL (2.2-4.0); Potassium, Blood 4.5 mmol/L (3.5-5.5); Total Protein, Blood 6.1 g/dL (6.4-8.2)
[2023-08-30 16:22] VITALS: BP 131/56
--- NOTE | 2023-08-30 17:44 | NUR ---
DAYSHIFT SUMMARY Patient alert, quiet, delayed responses. No acute changes to patient status. No s/sx of COVID, afebrile, sats stable. IV ABX administred. Awaiting discharge planning.
[2023-08-30 20:08] VITALS: BP 138/63
[2023-08-31 01:06] LABS: BASOPHILS ABSOLUTE AUTO 0.02 K/mm3 (0.00-0.23); BASOPHILS PERCENT AUTO 0 % (0-2); EOSINOPHILS PERCENT AUTO 0 % (0-6); Hematocrit 34.6 % (33.0-51.0); Hemoglobin 11.1 g/dL (11.5-16.0); IMMATURE GRAN ABSOLUTE AUTO 0.11 K/mm3 (0.00-0.10); IMMATURE GRAN PERCENT AUTO 2 % (0-1); LYMPHOCYTES ABSOLUTE AUTO 2.36 K/mm3 (0.84-5.20); LYMPHOCYTES PERCENT AUTO 35 % (21-46); MONOCYTES ABSOLUTE AUTO 0.66 K/mm3 (0.16-1.47); MONOCYTES PERCENT AUTO 10 % (4-13); Mean Corpuscular HGB 29.4 pg (26.0-34.0); Mean Corpuscular HGB Conc 32.1 g/dL (31.5-36.5); Mean Corpuscular Volume 92 fL (80-100); Mean Platelet Volume 11.7 fL (9.1-12.4); NEUTROPHILS ABSOLUTE AUTO 3.53 K/mm3 (1.96-9.15); NEUTROPHILS PERCENT AUTO 53 % (41-73); Platelet Count 223 K/mm3 (150-400); RDW Coefficient Variation 14.9 % (11.7-14.2); RDW Standard Deviation 49.7 fL (35.1-46.3); Red Blood Cell Count 3.77 M/mm3 (3.80-5.20); White Blood Cell Count 6.68 K/mm3 (4.00-11.30)
[2023-08-31 01:24] LABS: Vancomycin, Trough 14.9 ug/mL (5.0-10.0)
--- NOTE | 2023-08-31 04:31 | NUR ---
SHIFT SUMMARY A/OX4 , ROOM AIR. FLAT, SOFT SPOKEN AND SLOW TO RESPOND. SAT UP FOR MED ADMINISTRATION PILLS WHOLE IN APPLESAUCE DRANK ABOUT 3/4 OF TISHA PACKET. REPOSITIONING Q2. PRN TYLENOL GIVEN X1 FOR PAIN TO BACK. IV ANTIBIOTIVS ADMINSITERED PER PHARMACY AND EMAR
[2023-08-31 04:38] VITALS: BP 124/66
[2023-08-31 07:52] VITALS: BP 121/56
[2023-08-31 11:59] LABS: Albumin, Blood 2.8 g/dL (3.4-5.0); Albumin/Globulin Ratio 0.8 (0.8-1.8); Bilirubin, Total 0.8 mg/dL (0.1-1.0); Bun/Creatinine Ratio 29.4 (12.0-20.0); Calcium, Blood 8.6 mg/dL (8.5-10.1); Creatinine, Blood 1.19 mg/dL (0.40-1.00); Globulin, Blood 3.5 g/dL (2.2-4.0); Potassium, Blood 4.3 mmol/L (3.5-5.5); Total Protein, Blood 6.3 g/dL (6.4-8.2)
[2023-08-31] MEDS ORDERED: ACET500 PO (12:35)
[2023-08-31] MEDS ORDERED: ALBU2.5V5 INH (12:38)
[2023-08-31] MEDS ORDERED: ASPI81CH PO (12:38)
[2023-08-31] MEDS ORDERED: MIRALAX17 GM PO (12:39)
[2023-08-31] MEDS ORDERED: XARELTO10 M1 PO (12:40)
[2023-08-31] MEDS ORDERED: CEPH500 PO (12:40)
[2023-08-31 15:31] VITALS: BP 144/72
--- NOTE | 2023-08-31 16:37 | NUR ---
PT IS NOT LEAVING, DR. PANTOJA NOTIFIED. ORDERS RECEIVED.
--- NOTE | 2023-08-31 19:24 | NUR ---
SHIFT SUMMARY: PT A/O X 4, LIFT PT. PLEASANT AND COOPERATIVE WITH CARE. PT WAS SUPPOSED TO BE DISCHARGED TODAY BUT WAS CANCELED BECAUSE INSURANCE DID NOT AUTHORIZE. PT SON UPDATED WITH PLAN. PT VERBALIZED UNDERSTANDING AND WAS OKAY WITH STAYING IN THE HOSPITAL. PT DID NOT HAVE ANY COMPLAINTS OF PAIN THROUGHOUT THE DAY. SIGALA IN AND WILL BE REMOVED WHEN SON LEAVES.
[2023-08-31 19:54] VITALS: BP 126/62
[2023-09-01 04:47] VITALS: BP 113/56
--- NOTE | 2023-09-01 04:52 | NUR ---
SHIFT SUMMARY VSS SON AT BEDSIDE BOTH HAVE FLAT AFFECTS, PT ABLE TO LET ME KNOW SHE HAD BM. PT CHANGED AND SIGALA WAS REMOVED. PT MEDICATED AND WENT TO SLEEP, SON WENT HOME. PT NOT RECEIVING AND FLUIDS NOR HAS SHE DRANK ANYTHING SINCE SIGALA REMOVED SO NOT TOO CONCERNED WITH RETENTION.PT HAD LARGE LOOSE STOOL AND POSSIBLY URINATED, WILL CONT TO MONITOR
--- NOTE | 2023-09-01 05:57 | NUR ---
PT WAS ABLE TO USE BEDPAN TO URINATE 350 ML, WAS MORE BUT WAS INC.
[2023-09-01 06:21] LABS: BASOPHILS ABSOLUTE AUTO 0.02 K/mm3 (0.00-0.23); BASOPHILS PERCENT AUTO 0 % (0-2); EOSINOPHILS PERCENT AUTO 0 % (0-6); Hematocrit 35.6 % (33.0-51.0); Hemoglobin 11.5 g/dL (11.5-16.0); IMMATURE GRAN ABSOLUTE AUTO 0.04 K/mm3 (0.00-0.10); IMMATURE GRAN PERCENT AUTO 1 % (0-1); LYMPHOCYTES ABSOLUTE AUTO 1.87 K/mm3 (0.84-5.20); LYMPHOCYTES PERCENT AUTO 36 % (21-46); MONOCYTES ABSOLUTE AUTO 0.54 K/mm3 (0.16-1.47); MONOCYTES PERCENT AUTO 11 % (4-13); Mean Corpuscular HGB 29.6 pg (26.0-34.0); Mean Corpuscular HGB Conc 32.3 g/dL (31.5-36.5); Mean Corpuscular Volume 92 fL (80-100); Mean Platelet Volume 11.8 fL (9.1-12.4); NEUTROPHILS ABSOLUTE AUTO 2.67 K/mm3 (1.96-9.15); NEUTROPHILS PERCENT AUTO 52 % (41-73); Platelet Count 200 K/mm3 (150-400); RDW Coefficient Variation 15.2 % (11.7-14.2); RDW Standard Deviation 50.5 fL (35.1-46.3); Red Blood Cell Count 3.88 M/mm3 (3.80-5.20); White Blood Cell Count 5.14 K/mm3 (4.00-11.30)
[2023-09-01 07:39] VITALS: BP 137/67
--- NOTE | 2023-09-01 16:19 | NUR ---
DC TO MAURICIO REPORT CALLED TO RECEIVING MAURICIO RN. PT CLEANED AFTER HAVING INCONTINENT BM THEN LIFTED WITH LIFT IN ROOM TO TRANSPORT W/C. ALL PERSONAL BELONGINGS TAKEN BY PT'S SON. DC PKT GIVEN TO TRANSPORT PERSONNEL.
== END 2023-09-01 16:03 | disposition home or self-care (01) | DRG 853 ==
LOC: ER 13:24 → PCU 17:34 → MEDS 17:34 → ICUE 17:34 → PCU 18:50 → ICUE 20:05 → PCU 08-23 07:00 → MEDS 08-23 18:16
PROVIDERS: Family Medicine; Hospitalist; Podiatrist; Student in an Organized Health Care Education/Training Program; ADMIT Internal Medicine
PROC: 0Y6S0Z0 Detachment at Left 2nd Toe, Complete, Open Approach (ICD-10-PCS; principal; 2023-08-23 14:00)
PROC: 5A09357 Assistance with Respiratory Ventilation, Less than 24 Consecutive Hours, Continuous Positive Airway Pressure (ICD-10-PCS; 2023-08-25)
PROC: 0T9B70Z Drainage of Bladder with Drainage Device, Via Natural or Artificial Opening (ICD-10-PCS; 2023-08-25)
PROC: 4A03XR1 Measurement of Arterial Saturation, Peripheral, External Approach (ICD-10-PCS; 2023-08-25)
PROC: 3E03329 Introduction of Other Anti-infective into Peripheral Vein, Percutaneous Approach (ICD-10-PCS; 2023-08-26)
DX: A40.0 Sepsis due to streptococcus, group A (principal); G92.8 Other toxic encephalopathy; U07.1 COVID-19; J96.01 Acute respiratory failure with hypoxia; L03.116 Cellulitis of left lower limb; N17.9 Acute kidney failure, unspecified; M86.172 Other acute osteomyelitis, left ankle and foot; Z68.42 Body mass index [BMI] 45.0-49.9, adult; E11.69 Type 2 diabetes mellitus with other specified complication; L97.524 Non-pressure chronic ulcer of other part of left foot with necrosis of bone; E11.621 Type 2 diabetes mellitus with foot ulcer; R65.20 Severe sepsis without septic shock; E05.00 Thyrotoxicosis with diffuse goiter without thyrotoxic crisis or storm; K72.90 Hepatic failure, unspecified without coma; I12.9 Hypertensive chronic kidney disease with stage 1 through stage 4 chronic kidney disease, or unspecified chronic kidney disease; N18.30 Chronic kidney disease, stage 3 unspecified; E11.22 Type 2 diabetes mellitus with diabetic chronic kidney disease; R91.8 Other nonspecific abnormal finding of lung field; E66.9 Obesity, unspecified; E78.00 Pure hypercholesterolemia, unspecified; E03.9 Hypothyroidism, unspecified; D69.6 Thrombocytopenia, unspecified; Z88.0 Allergy status to penicillin; Z79.811 Long term (current) use of aromatase inhibitors; Z79.84 Long term (current) use of oral hypoglycemic drugs; Z79.82 Long term (current) use of aspirin; Z98.890 Other specified postprocedural states; Z79.4 Long term (current) use of insulin; Z79.01 Long term (current) use of anticoagulants; Z79.2 Long term (current) use of antibiotics; Z86.010 Personal history of colon polyps
CPT/HCPCS: 0202U; 36415; 36600; 51701; 70450; 71045; 71250; 73630; 73701; 76700; 80048; 80053; 80202; 81001; 82533; 82728; 82803; 82947; 83010; 83540; 83550; 83605; 83735; 83880; 84145; 84443; 85007; 85025; 85027; 85384; 85610; 85651; 85730; 86022; 86140; 87040; 87147; 88305; 88311; 92526; 92610; 93005; 93010; 93306; 94640; 94660; 94664; 94760; 94762; 96361-59; 96365-59; 97110; 97162; 97166; 97530; 97535; 99285-25; A9270; J0692; J0696; J1100; J1815; J3370; J7030; J7050; Q0249; Q9967

== ENCOUNTER → 2023-12-25 | Outpatient (CLI) | payer OTHER ==
[~2023-12-25] MED LIST changes: +ACET500 PO; +ALBU2.5V5 INH; +ASPI81CH PO; +CEPH500 PO; +MIRALAX17 GM PO; +Prinivil10 MG PO; +XARELTO10 M1 PO
[2023-12-25 15:44] LABS: Source, Urine Clean Catch
[2023-12-25 18:18] LABS: Appearance, Urine Cloudy (Clear); Bilirubin, Urine Neg (Neg); Blood, Urine Neg (Neg); Color, Urine Yellow (P-Yellow); Glucose Qualitative, Urine Neg (Neg); Ketones, Urine Neg (Neg); Leukocyte Esterase, Urine 2+ (Neg); Nitrite, Urine Neg (Neg); Protein, Urine 1+ (Neg); Specific Gravity, Urine 1.025 (1.003-1.022); Urobilinogen, Urine NORM (Normal)
[2023-12-25 18:48] LABS: Amorphous Light (0-Heavy); Bacteria Many /hpf; Calcium Oxalate Crystals Few /hpf; Squamous Epithelial Cells Mod /hpf (Few)
[2023-12-25 19:25] LABS: Microalb/Creat Ratio UR, Rand 5.714 mg/g (0.000-30.000); Microalbumin, Random Urine 13.2 mg/L (0.000-20.000)
== END | disposition home or self-care (01) ==
LOC: LAB 12:30 → LAB SHORT 12:30
PROVIDERS: Hospitalist
DX: N18.2 Chronic kidney disease, stage 2 (mild) (principal)
CPT/HCPCS: 81001; 82043; 82570; 87077; 87086; 87186